=== PATIENT | female | born 1985 | race Caucasian/White ===

== ENCOUNTER 2020-03-26 18:26 | Emergency (ER) | payer SELFPAY ==
--- NOTE | 2020-03-26 21:31 | ER ---
Nurse's Notes [facility] Name: Earline Abrams Age: 34 yrs Sex: Female : 1985 Arrival Date: 03/26/2020 Time: 18:30 Bed 27 Private MD: Diagnosis: Presentation: 03/26 18:34 Chief complaint: Patient states: Left sided CP for 1 day. + SOB. + N/V. New to [address], started today. Coronavirus screen: Client denies travel out of the [place] in the last 14 days. At this time, the client does not indicate any symptoms associated with coronavirus-19. The client reports previous COVID testing was negative. Ebola Screen: Patient denies travel to an Ebola-affected area in the 21 days before illness onset. Initial Sepsis Screen: Does the patient meet any 2 criteria? HR > 90 bpm. No. Patient's initial sepsis screen is negative. Does the patient have a suspected source of infection? No. Patient's initial sepsis screen is negative. Risk Assessment: Do you want to hurt yourself or someone else? Patient reports no desire to harm self or others. Onset of symptoms was March 26, 2020. 18:34 Method Of Arrival: Ambulatory ll1 18:34 Acuity: GORDON 3 ll1 Historical: - Allergies: 18:37 No Known Allergies; ll1 - PSHx: 18:37 ; ll1 - Immunization history:: Flu vaccine is not up to date. - Social history:: Smoking status: Patient reports the use of cigarette tobacco products, denies chronic smoking, but will smoke occasionally. Vital Signs: 18:34 BP 128 / 95; Pulse 95; Resp 18; Temp 98.1; Pulse Ox 98% ; Height 5 ft. 0 in. (152.40 ll1 cm); Pain 10/10; ED Course: 18:30 Patient arrived in ED. mr 18:36 Triage completed. ll1 18:37 Arm band placed on. EKG completed in triage. Results shown to MD. ll1 21:21 Juan Miguel Meza NP is PHCP. pm1 21:21 Lamonte Fiore MD is Attending Physician. pm1 21:23 Brynn Pretty RN is Primary Nurse. ca1 Administered Medications: No medications were administered Outcome: 21:31 Patient left the ED. ca1 Signatures: Katherine Lema mr DerrickJuan Miguel, ELECTRICAL FITTER ELECTRICAL FITTER pm1 Brynn Pretty RN RN ca1 Odilia Sigala RN RN ll1
[2020-03-27 03:15] VITALS: BP 128/95; TEMP 98.1; O2SAT 98
--- NOTE | 2020-03-28 07:20 | EKG ---
Test Date: 2020-03-26 Test Time: 18:36:01 Investment Representative: ARFICA MEASUREMENT RESULTS: Intervals: Rate: 82 NC: 148 QRSD: 88 QT: 352 QTc: 411 [place]: P: 31 NC: 148 QRS: 79 T: 49 INTERPRETIVE STATEMENTS: Normal sinus rhythm Normal ECG No previous ECG available for comparison Electronically Signed On 03-28-20 07:17:52 DOOR TRIMMER by Ezekiel Kay
== END 2020-03-26 21:31 | disposition left against medical advice (07) ==
LOC: ER 18:26
DX: Z53.21 Procedure and treatment not carried out due to patient leaving prior to being seen by health care provider (principal)
CPT/HCPCS: 93005; 99281